=== PATIENT | male | born 2000 | race Caucasian/White ===

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

== ENCOUNTER 2020-01-04 22:59 | Emergency (ER) | payer SELFPAY ==
[2020-01-04 23:00] VITALS: BP 120/74; PULSE 96; RESP 16; TEMP 37.3; O2SAT 98; BMI 19.3
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
[2020-01-04 23:35] LABS: Absolute Lymphocyte Count 3.35 X10^3/uL (0.83-4.51); Absolute Neutrophil Count 4.7 X10^3/uL (2.0-7.7); Basophil# 0.06 X10^3/uL; Basophil% 0.7 % (0-1); Eosinophils% 2.2 % (0-5); Hematocrit 44.3 % (40-54); Hemoglobin 14.5 g/dL (13.0-16.5); Lymphocyte # 3.35 X10^3/ul (4.0); Lymphocyte % 37.4 % (19-41); Mean Corp Hgb Conc 32.7 g/dL (32-36); Mean Corpuscular Hgb 29.8 pg (27.0-32.0); Monocyte# 0.63 X10^3/uL; NRBC Flagged by Analyzer 0 % (0-5); Neutrophil % 52.5 % (47-70); Platelet Count 370 K/mm3 (150-450); RBC Distribution Width CV 12.2 % (11.6-14.6); Red Blood Count 4.87 M/mm3 (4.6-6.2)
[2020-01-04 23:41] LABS: Anion Gap 5 (5-15); BUN 10 mg/dL (7-18); Calcium,Total 9.1 mg/dL (8.5-10.1); Chloride 109 mmol/L (98-107); Creatinine, Serum 0.91 mg/dL (0.70-1.30); EST Glomerular Filtration Rate 112 mL/min (>60); Est Glom Filt Rate - Afr Amer 136 mL/min (>60); Estimated Creatinine Clearance 131.87 ml/min; Glucose 108 mg/dL (74-106); Potassium 3.3 mmol/L (3.5-5.1); Sodium Level 142 mmol/L (136-145)
[2020-01-04 23:58] LABS: Alcohol, Blood (Medical)-Serum < 3.0 mg/dL
[2020-01-05 00:28] LABS: Amphetamine Urine VISTA POSITIVE (<1000 ng/mL); Barbiturate Urine VISTA NEGATIVE (< 200 ng/mL); Benzodiazepine Urine VISTA NEGATIVE (< 200 ng/mL); Cocaine Urine VISTA NEGATIVE (< 300 ng/mL); Ecstacy Urine VISTA NEGATIVE (< 500 ng/mL); Methadone Urine VISTA NEGATIVE (< 300 ng/mL); PCP Urine VISTA NEGATIVE (< 25 ng/mL); THC Urine VISTA POSITIVE (< 50 ng/mL); Vista UDS pH Range 6
[2020-01-05 00:37] VITALS: BP 117/78; PULSE 84; RESP 16; O2SAT 100
[2020-01-05 02:52] VITALS: BP 117/87; PULSE 82; RESP 18; O2SAT 100
== END 2020-01-05 03:04 | disposition home or self-care (01) ==
LOC: ED 01-05 02:49
PROVIDERS: Emergency Provider Emergency Medicine
DX: F43.0 Acute stress reaction (principal); S41.112A Laceration without foreign body of left upper arm, initial encounter; X78.1XXA Intentional self-harm by knife, initial encounter; Y93.9 Activity, unspecified; Y92.9 Unspecified place or not applicable; F17.200 Nicotine dependence, unspecified, uncomplicated
CPT/HCPCS: 80048; 80307; 80320; 85025; 99285; G0480

== ENCOUNTER 2020-05-08 23:40 | Emergency (ER) | payer SELFPAY ==
[2020-05-08 23:40] VITALS: BP 180/112; PULSE 112; RESP 18; TEMP 36.6; O2SAT 100; BMI 17.0
--- NOTE | 2020-05-09 00:16 | ED.VIS.DENTA ---
History of Present Illness Chief Complaint: Dental Informant: Patient Onset: Weeks - 1.5 Context: Gradual Onset Timing: Continuous Quality: ache Location: right mandib molar Current Severity: Severe Maximum Severity: Severe Worsened by: eating Relieved by: - - nothing Associated Symptoms: Jaw Swelling Narrative: Patient has no dentist and has had progressively worsening pain and a decayed tooth. No fevers or chills. Past Medical History - Allergies and Home Meds Allergies/Adverse Reactions: Allergies amoxicillin [Amoxicillin] Allergy (Verified 05/08/20 23:42) Unknown Primary Care Physician: Care Physician,No Primary [Primary Care Provider] - Past Medical History: None Surgical History: no surgical history Smoking Status: Current every day smoker Review of Systems General: Denies: Chills, Fever, Sweats ENT: Reports: - - Dental pain. Denies: Bilateral ear pain, Rhinorrhea, Sore throat Respiratory: Denies: Dyspnea, Cough, Dyspnea on exertion Gastrointestinal: Denies: Abdominal pain, Nausea, Vomiting, Diarrhea, Melena, Hematochezia Physical Exam Vital Signs/Narrative: Vital Signs Temp Pulse Resp BP Pulse Ox 05/08/20 23:40 97.9 F 112 H 18 180/112 H 100 Inital Vital Signs reviewed: Yes General: Well nourished, Well developed, - - Well-appearing no distress Head: Normocephalic, Atraumatic Mouth/Throat: Normal posterior oropharynx, No sublingual edema, Normal Stensen's duct, Focal dental decay - #31, Focal gum swelling - #31, Tenderness on tooth percussion - #31. Negative for: Dental abscess, Trismus Neck: Supple, Anterior submandibular lymphadenopathy - Right side only Skin: Normal color, No rash, No Trauma Neurological: Alert, Oriented x3, Cranial nerves II-XII grossly intact, Normal Strength, Normal Sensation, Normal Gait Diagnostic/Tx/Re-eval - Medical Decision Making No drainable collection. The palpable area under his jaw is likely lymphadenopathy associated with a dental infection of the painful tooth. Placed on clindamycin since he has an amoxicillin allergy, advised to eat yogurt or take a probiotic to prevent antibiotic-associated diarrhea, and given Naprosyn for the pain. Given a list of dentists to follow-up with. ED Disposition - Plan for ED Patient: Disposition: Home or Assisted Living Diagnosis: Infected dental caries Instructions: ED Tooth Pain Prescriptions: Clindamycin [Cleocin] 300 mg PO 4X/DAY #80 cap Prescription Printed Naproxen [Naprosyn] 500 mg PO BID PRN #20 tab Prescription Printed Referrals: Dentist,Your [STAFF PHYSICIAN] - As soon as possible (see attached dental clinics form for options if needed)
[2020-05-09] MEDS: Naproxen 500 MG Tablet PO (00:47)
[2020-05-09] MEDS: Clindamycin HCl 150 MG Capsule 300 MG PO (00:47)
== END 2020-05-09 00:48 | disposition home or self-care (01) ==
PROVIDERS: Emergency Provider Emergency Medicine
DX: K04.7 Periapical abscess without sinus (principal); K02.9 Dental caries, unspecified; F17.200 Nicotine dependence, unspecified, uncomplicated
CPT/HCPCS: 99283

== ENCOUNTER 2020-07-27 17:57 | Emergency (ER) | payer SELFPAY ==
[2020-07-27 17:58] VITALS: BP 142/111; PULSE 119; RESP 16; TEMP 36.9; O2SAT 99; BMI 17.1
[2020-07-27 18:28] VITALS: BP 144/88
--- NOTE | 2020-07-27 18:34 | ED.DCSUM_ITS ---
History of Present Illness Chief Complaint: Cellulitis Informant: Patient Onset: Days Context: Gradual Onset Timing: Continuous Current Severity: Moderate Maximum Severity: Severe Narrative: The patient is a 20-year-old male who presents to the emergency department with facial swelling. Patient states that he has what started as a dental abscess about 7 days ago. He states he actually presented to an outside hospital yesterday. He was admitted for IV antibiotics and left AGAINST MEDICAL ADVICE. He states that today, the area is gotten more swollen. He denies any trouble speaking. He states that it is draining still inside his mouth. He states that they put him on liquid antibiotics, but he is not started taking them. He denies fevers. He denies any other systemic complaints. Prior similar symptoms: No Recent Illness/Hospitalization: No Past Medical History - Allergies and Home Meds Allergies/Adverse Reactions: Allergies amoxicillin [Amoxicillin] Allergy (Verified 05/08/20 23:42) Unknown Primary Care Physician: Care Physician,No Primary [Primary Care Provider] - Prior records reviewed: Yes Past Medical History: None Surgical History: no surgical history Smoking Status: Current every day smoker Review of Systems General: Denies: Chills, Fever, Sweats Eyes: Denies: Visual changes - bilaterally, Diplopia ENT: Denies: Rhinorrhea, Sore throat Cardiovascular: Denies: Chest pain, Palpitations Respiratory: Denies: Dyspnea, Cough, Dyspnea on exertion Gastrointestinal: Denies: Abdominal pain, Nausea, Vomiting, Diarrhea, Melena, Hematochezia Genitourinary: Denies: Dysuria, Hematuria, Frequency Musculoskeletal: Denies: Back pain, Extremity Pain Skin: Denies: Rash, Wounds Neurological: Denies: Headache, Weakness, Numbness Physical Exam Vital Signs/Narrative: Vital Signs Temp Pulse Resp BP Pulse Ox 07/27/20 18:28 144/88 H 07/27/20 17:58 98.4 F 119 H 16 142/111 H 99 Inital Vital Signs reviewed: Yes General: Well nourished, Well developed, No Acute Distress Head: Normocephalic, Atraumatic Eyes: Perrl, EOMI ENT: Moist mucous membranes, No rhinorrhea, - - There is fullness of the right submandibular area with significant edema and a focal abscess. There is dental abscess of tooth #30. Mild trismus. No stridor. Neck: Supple, Nontender Cardiovascular: Regular rate, Regular rhythm, No murmurs Respiratory: No distress, CTA bilaterally, Chest nontender Abdomen: Soft, Nontender, Nondistended, Normal bowel sounds Back: Nontender, Normal Inspection Extremities: Nontender, No edema Skin: Normal color, No rash Neurological: Alert, Oriented x3, Cranial nerves II-XII grossly intact, Normal Strength, Normal Sensation Psychological: Normal affect, Normal Mood Diagnostic/Tx/Re-eval - Medical Decision Making The patient has rather significant dental abscess with tracking to the lower jaw. He has a subcutaneous abscess looks like communication. I did feel that this patient is going require broad-spectrum antibiotics, imaging, and discussion with maxillofacial surgery versus transfer. I was able to review his CT from 2 days ago which showed osteomyelitis and large abscess. However, the patient states that he just wants to leave. I did spend time at the bedside discussing with this him with him. He states he cannot be admitted and just wants to go to [place] himself. He states he needs to take care of his 1-year-old son. I did careers counsellor him that if this infection is not treated, it could easily kill him. He states he understands that just wants to leave and get his own ride to [place] to have this taken care of. The patient has capacity to make his own decisions. I did offer him even a dose of IV antibiotics, but he states he is just going to leave. The patient will sign out AGAINST MEDICAL ADVICE. Impression 1. Joey angina ED Disposition - Plan for ED Patient: Referrals: Care Physician,No Primary [Primary Care Provider] -
--- NOTE | 2020-07-27 19:42 | ED.RN ---
pt refused to have I.V. or I.V. antibiotics, pt left AMA.
== END 2020-07-27 19:42 | disposition home or self-care (01) ==
LOC: ED 18:59
PROVIDERS: Emergency Provider Emergency Medicine
DX: K12.2 Cellulitis and abscess of mouth (principal); Z53.21 Procedure and treatment not carried out due to patient leaving prior to being seen by health care provider; F17.200 Nicotine dependence, unspecified, uncomplicated
CPT/HCPCS: 99282; J7030; A4216

== ENCOUNTER → 2020-07-29 03:08 | Emergency (ER) | payer SELFPAY ==
[2020-07-27 17:58] VITALS: BMI 17.1
--- NOTE | 2020-07-29 07:20 | ED.VISSUMM ---
- ER Visit Summary Date of Service: 07/29/20 Chief Complaint: Abscess History of Present Illness: The patient is a 20 M with about 8 days of a facial infection that started as a tooth ache, grew to a dental abscess, and then spread to his right face/jaw. He was seen here yesterday and left AGAINST MEDICAL ADVICE, according to the patient because the nurses could not get an IV in tx. Prior to that, he was seen at the [facility] ER, states that they were trying to transfer him to [facility] because of the severity of his infection, and he refused and left AGAINST MEDICAL ADVICE from there with a prescription for clindamycin 300 mg 4 times daily x10 days. He initially presents here saying that he needs to be transferred to [place] because of the severity of his infection, and he came here because he does not have a ride to [place], presenting around 3 AM or so. He has had no systemic symptoms or fevers. He states last night, things changed when at his right lower jaw/external face, the associated scab opened up and drained foul-smelling discharge and a significant amount of it. Physical Examination: Other than mild hypertension his vital signs are normal. Well-appearing in no acute distress. Talking normally, without any slurring or difficulty, however has subjective trismus on exam, patient states he is unable to open his mouth further for me to examine the inside, which prevents examination of anything other than his frontal incisors and bicuspids, which are unremarkable-appearing. Externally on the face, there is an open abscess that is about 2 cm open at the right lateral anterior mandible. It is moist, but there is no expressible purulent material. It is tender, as is his mandibular face proximal to this area which is indurated and mildly erythematous. There is no parotid tenderness/swelling. There is no submental involvement. He has no stridor. He has obvious asymmetry with swelling in the right face compared with the left. The rest of his exam is unremarkable. Test Results: White blood count 13.3 with a leftward shift, no bandemia. Renal function normal. CT soft tissue neck with IV contrast shows a small periapical abscess associated with the right second mandibular molar, and absence of any focal fluid collection otherwise. The ulcerated wound is noted without an associated fluid collection, and there is soft tissue edema adjacent/proximal to this consistent with cellulitis. Airway structures are all normal. Emergency Department Course and Treatment: This patient's encounter occurred entirely in EMR downtime. I did not have access to any of the patient's old records including his recent ED visit yesterday. Dictating this note after the patient's encounter, I did note that he had a prior CT, which I also did not have access to since the radiology electronic software was down, that showed an abscess associated with osteomyelitis of the mandible. That was not noted on the CT that we obtained, only soft tissue abnormalities lateral to the mandible. Given that his abscess spontaneously drained, and the small periapical abscess does not necessarily need surgical management, antibiotics are indicated. I treated him with IV vancomycin. He was seen in the room by nurses drinking soda, able to swallow without any difficulty and having no breathing issues. At the time of my evaluation, he does not have Joey angina. I discussed his clinical evaluation in addition to the imaging and lab work with Dr. Mendoza, who at that point noted that he was contacted about this patient from [facility] when he left AGAINST MEDICAL ADVICE and he did not receive any other details nor follow-up. He agreed that it would be reasonable for the patient to follow-up with him as an outpatient. His wound externally was dressed, he was instructed with regard to dressing changes and to continue his clindamycin, and he was given a prescription for [place] for the pain. Patient understood all this and was comfortable with this overall plan. Disposition: Home Impression: Facial abscess status post spontaneous drainage; facial cellulitis; periapical dental abscess This note was generated with eSpark dictation software. It may contain incorrect words, spelling, and punctuation that were not noted in review of the chart prior to signing ED Disposition - Plan for ED Patient: Disposition: Home or Assisted Living Referrals: Chun Mendoza DDS [STAFF PHYSICIAN] - As soon as possible
--- NOTE | 2020-07-29 07:24 | CT_ITS ---
STUDY: CT SOFT TISSUE NECK WITH CONTRAST REASON FOR EXAM: Male, 20 years old. Dental abscess right face. Open wound. RADIATION DOSAGE (If Supplied By Facility): CTDIvol = ( 11.02 ) mGy, DLP = ( 385.37 ) mGycm TECHNIQUE: The patient was scanned in a multi-detector CT scanner. High resolution transaxial imaging was performed following intravenous administration of IV 75mL Isovue-370. Sagittal and coronal images were reconstructed. Individualized dose optimization techniques were used for this CT. COMPARISON: None. FINDINGS: Normal bilateral parotid glands. Normal bilateral center administrator spaces. Normal bilateral parapharyngeal spaces. Normal bilateral carotid spaces. Normal bilateral sublingual and submandibular glands and spaces. Normal visualized nasopharynx. Normal retropharyngeal space. Normal perivertebral space. Normal visualized bilateral faucial tonsils. The visualized tongue, tongue base and oropharynx are normal. The visualized cervical lymph nodes (levels I-) are within normal size limits, and maintain normal morphology. There is no demonstrated solid or cystic mass lesion. There is no abnormal contrast enhancement. Normal epiglottis, bilateral vallecula and hypopharynx. The pre-epiglottic and paraglottic adipose spaces are normal. Normal visualized bilateral piriform sinuses, aryepiglottic folds, vocal cords, and arytenoid-cricoid articulations. Normal subglottic trachea. Normal bilateral lobes of the thyroid gland. Normal visualized pulmonary apices. 2.1 cm left maxillary sinus mucous retention cyst. Normal visualized cervical spine. Soft tissue edema adjacent to the lateral right mandible. No focal fluid collection lateral to the mandible to suggest an abscess. There is a 1.0 x 0.9 cm ulcer or wound within the soft tissue right anterior lateral mandible . Large carious lesion involving the right second mandibular molar with small periapical abscesses adjacent to the anterior and posterior root tips sagittal images 37 and 38. Small right submandibular lymph nodes. CT/Soft Tissue Neck WITH Contrast IMPRESSION: Right mandibular cellulitis which may be secondary to small periapical abscesses involving the right second mandibular molar. Alternatively the cellulitis could be related to the above-described wound adjacent to the right anterolateral mandible. Electronically Signed: Nuno Álvarez MD at 4:37 EST , Service support ,
[2020-07-29 07:45] LABS: Anion Gap 6 (5-15); BUN 18 mg/dL (7-18); BUN/Creat Ratio 20.5 RATIO (10-20); Chloride 101 mmol/L (98-107); Creatinine, Serum 0.88 mg/dL (0.70-1.30); EST Glomerular Filtration Rate 116 mL/min (>60); Est Glom Filt Rate - Afr Amer 141 mL/min (>60); Glucose 107 mg/dL (74-106); Potassium 3.5 mmol/L (3.5-5.1); Sodium Level 137 mmol/L (136-145)
[2020-07-29 08:14] LABS: Hematocrit 46.5 % (40-54); Hemoglobin 15.1 g/dL (13.0-16.5); Mean Corp Hgb Conc 32.5 g/dL (32-36); Mean Corpuscular Volume 92.4 fL (80-94); Mean Platelet Vol. 8.9 fl (6.2-12.0); Platelet Count 540 K/mm3 (150-450); RBC Distribution Width CV 13.5 % (11.6-14.6); RBC Distribution Width SD 46.3 fl (35.1-43.9); Red Blood Count 5.03 M/mm3 (4.6-6.2); White Blood Count 13.3 K/mm3 (4.4-11.0)
[2020-07-29 08:15] LABS: Absolute Lymphocyte Count 1.61 X10^3/uL (0.83-4.51); Absolute Neutrophil Count 10.8 X10^3/uL (2.0-7.7); Basophil% 0.4 % (0-1); Eosinophils% 1.1 % (0-5); Lymphocyte % 12.1 % (19-41); Monocyte% 5.2 % (0-10); Neutrophil % 80.9 % (47-70)
== END | disposition home or self-care (01) ==
PROVIDERS: Emergency Provider Emergency Medicine
DX: L02.01 Cutaneous abscess of face (principal); L03.211 Cellulitis of face; K04.7 Periapical abscess without sinus; Z72.0 Tobacco use
CPT/HCPCS: 70491; 80048; 85025; 96361; 96365; 99284; J7030; A4216